=== PATIENT | female | born 1980 | race Two or more races ===

== ENCOUNTER 2024-06-02 12:00 | Emergency (ER) | payer MEDICAID, SELFPAY ==
[2024-06-02 12:29] VITALS: BP 98/75; PULSE 92; RESP 18; TEMP 36.8; O2SAT 99; BMI 83.9
--- NOTE | 2024-06-02 12:38 | EKG_ITS ---
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
--- NOTE | 2024-06-02 12:39 | PD.EDRME ---
Rapid Medical Screening Exam RME Arrival date/time: 06/02/24 12:00 44-year-old female with history of diabetes DVT and PE presents the emergency department today with complaints of generalized weakness Chief Complaint: General Adult/Misc Complain Time Seen by Provider: 06/02/24 12:16 Vital signs: Vital Signs Temperature 98.2 F 06/02/24 12:29 Pulse Rate 92 06/02/24 12:29 Respiratory Rate 18 06/02/24 12:29 Blood Pressure 98/75 06/02/24 12:29 Pulse Oximetry (%) 99 06/02/24 12:29 Oxygen Delivery Method Room Air 06/02/24 12:29
[2024-06-02 12:55] LABS: Base Excess, Venous 0 (-3-3); O2 Saturation, Venous 79 % (96-97); PCO2, Venous 28 mmHg (36-56); PO2, Venous 40 mmHg (15-58); pH, Venous 7.51 (7.33-7.66)
[2024-06-02 12:59] LABS: Basophils % (Auto) 1 % (0-2.5); Eosinophils # (Auto) 0.2 Thou/mm3 (0.0-0.5); Eosinophils % (Auto) 3 % (0-10); Hematocrit 36.1 % (36.0-46.0); Immature Granulocytes % (Auto) 0 % (0-0); Immature Granulocytes Auto 0.01 Thou/mm3 (0.00-0.00); Lymphocytes # (Auto) 1.4 Thou/mm3 (1.0-4.8); Lymphocytes % (Auto) 25 % (10-50); Mean Corpuscular HGB Conc 33.2 g/dl (31.0-37.0); Mean Corpuscular Hemoglobin 27.6 pg (25.0-35.0); Mean Corpuscular Volume 83 fL (80-100); Monocytes # (Auto) 0.4 Thou/mm3 (0.0-0.8); Monocytes % (Auto) 7 % (0-12); Neutrophils # (Auto) 3.7 Thou/mm3 (1.8-7.7); Neutrophils % (Auto) 65 % (37-80); Nucleated Red Blood Cell % 0 /100 WBC (0); Platelet Count 278 Thou/mm3 (140-440); RDW Standard Deviation 55.1 fL (36.4-46.3); Red Blood Count 4.34 Miln/mm3 (4.00-5.20); White Blood Count 5.8 Thou/mm3 (3.6-11.0)
[2024-06-02 13:21] LABS: Glucose Estimated Average 82 mg/dL (80-131); Hemoglobin A1C 4.5 % Hgb (4.8-6.0)
[2024-06-02 13:30] LABS: INR 1.2 (0.9-1.3); Partial Thromboplastin Time 27.6 Seconds (22.0-36.0)
[2024-06-02 13:35] LABS: B-Type Natriuretic Peptide 41 pg/mL (0-100)
[2024-06-02 13:54] LABS: Alanine Aminotransferase 23 U/L (10-49); Albumin/Globulin Ratio 0.8 (1.2-2.2); Alkaline Phosphatase 121 U/L (46-116); Aspartate Amino Transferase 120 U/L (0-34); BUN/Creatinine Ratio 10 Ratio (12-20); Bilirubin,Total 2.3 mg/dL (0.3-1.2); Blood Urea Nitrogen < 5 mg/dL (9-23); Calcium 8.8 mg/dL (8.3-10.6); Calcium (Corrected) 9.6 mg/dL (8.5-10.1); Chloride 96 mMol/L (98-107); Creatinine (Component) 0.5 mg/dL (0.6-1.3); Glucose 113 mg/dL (74-106); Lipase 20 U/L (12-53); Magnesium 1.8 mg/dL (1.6-2.6); Osmolality,Calculated 262 (275-295); Sodium 132 mMol/L (136-145); Troponin I < 0.002 ng/mL (0.0-0.045); eGFR > 60 See Note
[2024-06-02 14:02] LABS: Anion Gap 14 (7-16); Carbon Dioxide 22.5 mMol/L (20.0-31.0)
[2024-06-02 15:04] VITALS: BP 116/85; PULSE 102; RESP 17; TEMP 36.7; O2SAT 97
[2024-06-02 16:51] VITALS: BP 106/85; PULSE 104; RESP 16; TEMP 36.7; O2SAT 98
[2024-06-02 16:52] LABS: Collection Type, Urine Clean Catch
[2024-06-02 16:58] VITALS: BP 108/85; PULSE 98; RESP 19; O2SAT 100
--- NOTE | 2024-06-02 16:58 | PC.NURSE ---
pt very poor historian when asked why here. states had doctor appointment today and doctor said i looked bad and to come here. pt with c/o weakness/dizzines/headache for days, and c/o difficulty eating due to too much phlegm for 4 months
[2024-06-02 17:05] LABS: Amphetamine/Methamp Scrn,U Negative (Negative); Barbiturate Screen,Urine Negative (Negative); Benzodiazepines Screen,Urine Negative (Negative); Benzoylecgonine Screen, Ur Negative (Negative); Fentanyl Screen,Urine Negative (Negative); Opiate Screen,Urine Negative (Negative); THC Screen,Urine Negative (Negative)
[2024-06-02 17:06] LABS: Bacteria,Urine 1+; Bilirubin,Urine 2+ (Negative); Blood,Urine Negative (Negative); Color,Urine Drk-Orange (Lt Yel-Yel); Glucose, Urine Negative (Negative); Hyaline Casts,Urine 1 /hpf (0-1); Ketones,Urine Trace (Negative); Leukocyte Esterase,Urine Positive (Negative); Nitrite,Urine Negative (Negative); Protein,Urine 2+ (Neg - Trace); RBC,Urine 18 /hpf (0-3); Specific Gravity,Urine 1.033 (1.001-1.035); Squamous Epithelial Cell,Urine 9 /hpf (0-5); Urobilinogen,Urine OVER mg/dL (0.0-1.0); WBC,Urine 103 /hpf (0-5)
[2024-06-02 17:08] LABS: Clarity,Urine Cloudy (Clear/Hazy)
--- NOTE | 2024-06-02 17:17 | PC.NURSE ---
Clarified to Xiao Sofia regarding pt's medication order with KCl 40mEq G tube x1; pt has no G-tube in place. Per Xiao Sofia GREENSMAN, ok to give liquid KCL 40mEq PO at this time.
--- NOTE | 2024-06-02 17:25 | XR_ITS ---
Examination: Abdomen sonogram, Limited Date and time of exam: June 02, 2024 1817 hrs. Indications: Rising bilirubin on laboratory examination this week with right upper abdominal pain nausea and vomiting Technique: Real-time james scale transabdominal sonographic images of the upper abdomen obtained. Findings: Cholelithiasis, 14 mm gallstone Gallbladder wall 0.51 cm no edema Common bile duct 0.5 cm no stones noted Pancreas obscured by bowel gas Hepatomegaly 19.7 cm fatty infiltration no focal liver lesions Normal hepatopedal portal venous flow Patent IVC Impression: Cholelithiasis Abnormal thickening of the gallbladder wall 0.51 cm, consider MRCP follow-up to exclude cholecystitis Moderate hepatomegaly fatty liver
[2024-06-02] MEDS: POTASSIUM CHLORIDE 20 mEq TABCR 40 MEQ PO (17:36)
[2024-06-02 18:24] VITALS: BP 105/89; PULSE 100; RESP 18; TEMP 37; O2SAT 99
--- NOTE | 2024-06-02 19:18 | PD.EDADULT ---
ED General RME/HPI General Chief complaint: General Adult/Misc Complain Stated complaint: sent by PCP. fatigue, nausea, cannot void, r/o DKA Time Seen by Provider: 06/02/24 12:16 Arrival date/time: 06/02/24 12:00 CC: Generalized weakness HPI ongoing for the past several days. The patient also is complaining of left upper quadrant abdominal pain. Patient denies fever chills shortness of breath difficulty breathing. RME / HPI RME / HPI narrative: 06/02/24 12:00 44-year-old female with history of diabetes DVT and PE presents the emergency department today with complaints of generalized weakness Related Data Home Medications ?Medication ?Instructions ?Recorded ?Confirmed rivaroxaban 15 mg tablet (Xarelto) 15 mg PO BID 03/11/24 05/18/24 Previous Rx's ?Medication ?Instructions ?Recorded zinc oxide 10 % topical cream 1 applic topical BID PRN skin 05/01/24 irritation #78 grams Allergies Allergy/AdvReac Type Severity Reaction Status Date / Time No Known Allergies Allergy Verified 06/02/24 12:02 Review of Systems Review of Systems Narrative Review of Systems: GEN: No fever, no chills, no weight loss EYES: No discharge, no visual changes, no pain HEENT: No ear pain, no congestion, no sore throat PULM: No shortness of breath, no cough, no congestion CV: No chest pain, no dyspnea on exertion, no palpitations GI: No nausea, no vomiting, no diarrhea, no pain, no constipation : No frequency, no urgency, no dysuria MUSC/SKEL: No joint pain, no back pain SKIN: No rash PSYCH: No hallucinations, no depression HEME/LYMPH: No easy bleeding or bruising tendencies NEURO: No weakness, no headache Past Medical History Past Medical History CARDIAC: Positive Deep Vein Thrombosis and Hypertension; Negative Cardiac Disorders or Congestive Heart Failure RESPIRATORY: Positive Pneumonia and Pulmonary Embolism; Negative Chronic Obstructive Pulmonary Disease (COPD) or Asthma GASTROINTESTINAL: Positive Gastrointestinal Disorders, Gall Bladder Disease and Obesity GENITOURINARY: Negative Renal Disease REPRODUCTIVE: Positive Previous Pregnancies ENDOCRINE: Positive Diabetes Mellitus Type 2; Negative Diabetes Mellitus Type 1 HEMATOLOGIC: Positive Clotting Problems; Negative Sickle Cell Disease OTHER HISTORY: Negative Blood Transfusions, Anesthesia Reactions or Cancer Surgical History SURGICAL: Negative Abdominal Surgery Social History SMOKING STATUS: Never smoker SECOND HAND EXPOSURE: No ED Exam Narrative Physical exam: [General: Morbidly obese not in any acute distress Head normocephalic HEENT: Within acceptable limits Neck is supple nontender Chest equal chest rise nontender to palpation Respiratory: Clear to auscultation no wheezes crackles or rubs CV: Rate rhythm is regular no murmurs rubs or clicks Abdomen is grossly distended secondary to body habitus soft left upper quadrant tenderness with palpation. No masses positive bowel sounds all 4 quadrants Back: No CVA tenderness no spinous process tenderness from cervical spine thoracic and lumbar spine Skin: Intact no petechiae rash induration ulceration or crepitus Extremities: Moving all extremity against resistance cap refill less than 2 seconds neurosensory intact Neuro: Awake alert oriented x3 Glascow coma 15 no focal deficits] Course Quality Measures none Orders Category Date Time Status Bedside Blood Glucose NOW Care 06/02/24 12:32 Active EKG (ED ONLY) *Do not use* NOW Care 06/02/24 12:38 Completed EKG (ED Only) Stat Exams 06/02/24 12:38 Draft US gall bladder Stat Exams 06/02/24 17:25 Completed A1C [Glycohemoglobin w (eAG)] Stat Lab 06/02/24 12:44 Completed B-Type Natriuretic Peptide Stat Lab 06/02/24 12:44 Completed CBC Stat Lab 06/02/24 12:44 Completed Comprehensive Metabolic Panel Stat Lab 06/02/24 12:44 Completed Drug Screen,Urine Stat Lab 06/02/24 16:43 Completed Lipase Stat Lab 06/02/24 12:44 Completed Magnesium Stat Lab 06/02/24 12:44 Completed Partial Thromboplastin Time Stat Lab 06/02/24 12:44 Completed Prothrombin Time with INR Stat Lab 06/02/24 12:44 Completed Troponin I Stat Lab 06/02/24 12:44 Completed Urinalysis Stat Lab 06/02/24 16:43 Completed VBG [Venous Blood Gas] Stat Lab 06/02/24 12:44 Completed KCL 10% Liq UDC 15 ML Med 06/02/24 16:10 Discontinued 40 meq GT X1 ONE Potassium Chloride [K-Dur] Med 06/02/24 17:21 Discontinued 40 meq PO X1 ONE Vital Signs Vital signs: Vital Signs Temperature 98.2 F 06/02/24 12:29 Pulse Rate 92 06/02/24 12:29 Respiratory Rate 18 06/02/24 12:29 Blood Pressure 98/75 06/02/24 12:29 Pulse Oximetry (%) 99 06/02/24 12:29 Oxygen Delivery Method Room Air 06/02/24 12:29 [facility] Patient data External records reviewed:: [facility] previous records Clinical information provided by:: patient Social determinants that could affect healthcare access:: none Patient has the following chronic illnesses:: Morbid obesity DVTs How is presenting disease/condition affected by chronic disease/condition?: uneffected by Evaluation data The following diagnostics were reviewed and interpreted by me:: lab results and radiology exam(s) Lab and/or radiology exams considered but not ordered:: CBC shows no acute leukocytosis anemia thrombocytopenia CMP shows no electrolyte imbalances renal impairment T. bili has elevated over the presents the 1 month. Urine is negative ultrasound of the gallbladder shows a mildly thickened gallbladder wall MRCP is recommended. CT of the abdomen shows no acute finding quires emergent immediate intervention. Interpretation Summary: Given the patient's presentation I recommend the patient follow-up tomorrow morning with MRCP Medications Medications considered but not ordered:: None Medication administrations:: Medication Administration History Discontinued Medications Potassium Chloride (Potassium Chloride 10% 20 Meq/15 Ml Udc) 40 meq GT X1 ONE Stop: 06/02/24 16:11 Last Admin: 06/02/24 17:36 Dose: Not Given Documented By: CYNTHIA Non-Admin Reason: Cancelled by Provider Potassium Chloride (Potassium Chloride 20 Meq Tabcr) 40 meq PO X1 ONE Stop: 06/02/24 17:22 Last Admin: 06/02/24 17:36 Dose: 40 meq Documented By: CYNTHIA None Consultations Consultation(s) initiated? (list below): No Diagnosis Differential Diagnosis ED Complaint MDM: Hypokalemia abdominal pain morbid obesity Most likely diagnosis given after review of the tests above:: Hypokalemia abdominal pain Admission Indicated Admission indicated?: not indicated Explain why admission is indicated or not indicated:: Stable to return tomorrow for MRCP Admission Request Was there a request for admission?: No Disposition Plan Disposition Plan: Discharge Discharge Attestation Discharge Attestation: The patient and all family members were given an opportunity to ask questions and understood the discharge instructions. Discharge instructions specifically effects, indications for sooner follow up or return to the emergency department, and the expected course of current diagnosis. Patient condition: Stable Medical Decision Making Differential Diagnosis Differential Diagnosis: Hypokalemia abdominal pain morbid obesity Lab Data 06/02/24 12:44 06/02/24 12:44 Labs: Lab Results 06/02/24 06/02/24 Range/Units 12:44 16:43 WBC 5.8 (3.6-11.0) Thou/mm3 RBC 4.34 (4.00-5.20) Miln/mm3 Hgb 12.0 (12.0-16.0) g/dL Hct 36.1 (36.0-46.0) % MCV 83 (80-100) fL MCH 27.6 (25.0-35.0) pg MCHC 33.2 (31.0-37.0) g/dl RDW Std Deviation 55.1 H (36.4-46.3) fL Plt Count 278 D (140-440) Thou/mm3 Neut % (Auto) 65 (37-80) % Lymph % (Auto) 25 (10-50) % [place] % (Auto) 7 (0-12) % Eos % (Auto) 3 (0-10) % Baso % (Auto) 1 (0-2.5) % Neut # (Auto) 3.7 (1.8-7.7) Thou/mm3 Lymph # (Auto) 1.4 (1.0-4.8) Thou/mm3 [place] # (Auto) 0.4 (0.0-0.8) Thou/mm3 Eos # (Auto) 0.2 (0.0-0.5) Thou/mm3 Baso # (Auto) 0.0 (0.0-0.2) Thou/mm3 Immature Gran # (Auto) 0.01 H (0.00-0.00) Thou/mm3 Absolute Nucleated RBC 0.00 (0.00-0.00) Thou/mm3 Immature Gran % 0 (0-0) % Nucleated RBC % 0 (0) /100 WBC PT 13.0 H (9.0-12.2) Seconds INR 1.2 (0.9-1.3) APTT 27.6 (22.0-36.0) Seconds VBG pH 7.51 (7.33-7.66) VBG pCO2 28 L (36-56) mmHg VBG pO2 40 (15-58) mmHg VBG O2 Sat (Mga) 79 L (96-97) % VBG Base Excess 0 (-3-3) Sodium 132 L (136-145) mMol/L Potassium 3.0 L (3.4-5.1) mMol/L Chloride 96 L (98-107) mMol/L Carbon Dioxide 22.5 (20.0-31.0) mMol/L Anion Gap 14 (7-16) BUN < 5 L (9-23) mg/dL Creatinine 0.5 L (0.6-1.3) mg/dL Estim Creat Clear Calc 169.0 (>60) mL/min eGFR > 60 (60 - ) See Note BUN/Creatinine Ratio 10 L (12-20) Ratio Glucose 113 H (74-106) mg/dL Estimated Ave Glu mg/dL 82 (80-131) mg/dL Hemoglobin A1c 4.5 L (4.8-6.0) % Hgb Calculated Osmolality 262 L (275-295) Calcium 8.8 (8.3-10.6) mg/dL Corrected Calcium 9.6 (8.5-10.1) mg/dL Magnesium 1.8 (1.6-2.6) mg/dL Total Bilirubin 2.3 H (0.3-1.2) mg/dL AST 120 H (0-34) U/L ALT 23 (10-49) U/L Alkaline Phosphatase 121 H (46-116) U/L Troponin I < 0.002 (0.0-0.045) ng/mL B-Natriuretic Peptide 41 (0-100) pg/mL Total Protein 7.0 (5.7-8.2) gm/dL Albumin 3.0 L (3.5-5.0) gm/dL Globulin 4.0 H (2.3-3.5) gm/dL Albumin/Globulin Ratio 0.8 L (1.2-2.2) Lipase 20 (12-53) U/L Ur Collection Type Clean Catch Urine Color Drk-[place] A (Lt Yel-Yel) Urine Clarity Cloudy A (Clear/Hazy) Urine pH 6.0 (5.0-7.0) Ur Specific [place] 1.033 (1.001-1.035) Urine Protein 2+ A (Neg - Trace) Urine Glucose (UA) Negative (Negative) Urine Ketones Trace (Negative) Urine Blood Negative (Negative) Urine Nitrite Negative (Negative) Urine Bilirubin 2+ A (Negative) Urine Urobilinogen (Auto) OVER (0.0-1.0) mg/dL Ur Leukocyte Esterase Positive (Negative) Urine RBC 18 H (0-3) /hpf Urine WBC 103 H (0-5) /hpf Ur Squamous Epith Cells 9 H (0-5) /hpf Urine Bacteria 1+ A (None) Hyaline Casts 1 (0-1) /hpf Urine Opiates Screen Negative (Negative) Urine Fentanyl Screen Negative (Negative) Ur Barbiturates Screen Negative (Negative) U Amphetamin/Meth Scrn Negative (Negative) U Benzodiazepines Scrn Negative (Negative) U Cocaine Metab Screen Negative (Negative) U Marijuana (THC) Screen Negative (Negative) Discharge Plan Plan Patient Disposition: HOME (Self Care) Patient condition on transfer: Stable Prescriptions/Referrals Prescriptions/Med Rec: No Action Xarelto 15 mg Tablet 15 mg PO BID Rx Instructions: must administer with evening meal zinc oxide 10 % cream 1 applic topical BID PRN (Reason: skin irritation) Qty: 78 0RF Rx Instructions: Apply as needed for irritation on areas of skin fold Referrals: Flavio Akhtar MD [Primary Care Provider] - In 1 week Problem List Clinical Impression: Morbid obesity, Weakness, Abdominal pain Patient/Caregiver Discharge Instructions Other Activity Instructions:: Recommend that you follow-up with MRCP in the morning. Print Language: Estonian Stand Alone Forms: Kalli Award Info., Patient Portal Info Letter, Work/School Release PA/WIRE STITCHER MACHINE Supervising Physician PA/WIRE STITCHER MACHINE Supervising Physician: Adam Sofia ENP
[2024-06-02 19:49] VITALS: BP 106/84; PULSE 98; RESP 20; O2SAT 99
--- NOTE | 2024-06-02 19:54 | PC.NURSE ---
Spoke with URSULA Medina prior to DC regarding pt's UA results. Provider stated he would send prescription for abx.
== END 2024-06-02 20:08 | disposition home or self-care (01) ==
PROVIDERS: Nurse Practitioner Primary Care; Emergency Provider Emergency Medicine; PCP Family Medicine
DX: E66.01 Morbid (severe) obesity due to excess calories (principal); R53.1 Weakness; K82.8 Other specified diseases of gallbladder; I10 Essential (primary) hypertension; R94.31 Abnormal electrocardiogram [ECG] [EKG]; Z68.45 Body mass index [BMI] 70 or greater, adult
CPT/HCPCS: 36415; 76705; 80053; 80307; 81001; 82803; 83036; 83690; 83735; 83880; 84484; 85025; 85610; 85730; 93005; 99284; A9270

== ENCOUNTER 2024-06-07 12:39 | Emergency (ER) | payer MEDICAID, SELFPAY ==
[2024-06-07] VITALS (7 sets, daily range): BP systolic 81–121; BP diastolic 62–83; PULSE 78–86; RESP 16–18; TEMP 36.1–37.1; O2SAT 96–100; BMI 45.7
--- NOTE | 2024-06-07 12:54 | EKG_ITS ---
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
--- NOTE | 2024-06-07 12:54 | XR_ITS ---
Examination: AP chest single view Technique one AP portable semiupright chest single view Exam date and time: June 07, 2024 1312 hours Comparison April 28, 2024 INDICATIONS: Coughing 5 months sepsis today. FINDINGS: Left perihilar left basilar pneumonia Reduced inspiratory effort Mild prominence cardiac contour Intact osseous structures IMPRESSION: Left perihilar left basilar pneumonia
--- NOTE | 2024-06-07 12:55 | PD.EDRME ---
Rapid Medical Screening Exam RME Arrival date/time: 06/07/24 12:39 44-year-old female presents emergency department complains of cough, congestion, weakness Chief Complaint: Dizziness Time Seen by Provider: 06/07/24 12:50
[2024-06-07 13:17] LABS: Basophils % (Auto) 1 % (0-2.5); Eosinophils # (Auto) 0.2 Thou/mm3 (0.0-0.5); Eosinophils % (Auto) 4 % (0-10); Hematocrit 37.6 % (36.0-46.0); Hemoglobin 12.4 g/dL (12.0-16.0); Immature Granulocytes % (Auto) 0 % (0-0); Immature Granulocytes Auto 0.02 Thou/mm3 (0.00-0.00); Lymphocytes # (Auto) 1.4 Thou/mm3 (1.0-4.8); Lymphocytes % (Auto) 30 % (10-50); Mean Corpuscular Hemoglobin 27.9 pg (25.0-35.0); Mean Corpuscular Volume 85 fL (80-100); Monocytes # (Auto) 0.4 Thou/mm3 (0.0-0.8); Monocytes % (Auto) 7 % (0-12); Neutrophils # (Auto) 2.8 Thou/mm3 (1.8-7.7); Neutrophils % (Auto) 59 % (37-80); Nucleated Red Blood Cell % 0 /100 WBC (0); Platelet Count 281 Thou/mm3 (140-440); RDW Standard Deviation 59.9 fL (36.4-46.3); Red Blood Count 4.44 Miln/mm3 (4.00-5.20); White Blood Count 4.8 Thou/mm3 (3.6-11.0)
[2024-06-07 13:36] LABS: B-Type Natriuretic Peptide 53 pg/mL (0-100)
[2024-06-07 13:40] LABS: Alanine Aminotransferase 21 U/L (10-49); Albumin/Globulin Ratio 0.8 (1.2-2.2); Alkaline Phosphatase 118 U/L (46-116); Anion Gap 14 (7-16); Aspartate Amino Transferase 125 U/L (0-34); BUN/Creatinine Ratio 8 Ratio (12-20); Bilirubin,Total 1.5 mg/dL (0.3-1.2); Blood Urea Nitrogen < 5 mg/dL (9-23); Calcium 8.5 mg/dL (8.3-10.6); Calcium (Corrected) 9.3 mg/dL (8.5-10.1); Carbon Dioxide 24.1 mMol/L (20.0-31.0); Chloride 96 mMol/L (98-107); Creatinine (Component) 0.6 mg/dL (0.6-1.3); Estimated Creatinine Clearance 145.4 mL/min (>60); Globulin 3.9 gm/dL (2.3-3.5); Glucose 84 mg/dL (74-106); INR 1.3 (0.9-1.3); Magnesium 1.9 mg/dL (1.6-2.6); Osmolality,Calculated 264 (275-295); Partial Thromboplastin Time 28.7 Seconds (22.0-36.0); Potassium 3.2 mMol/L (3.4-5.1); Prothrombin Time 13.6 Seconds (9.0-12.2); Sodium 134 mMol/L (136-145); Total Protein 6.9 gm/dL (5.7-8.2); Troponin I < 0.002 ng/mL (0.0-0.045); eGFR > 60 See Note
--- NOTE | 2024-06-07 14:28 | PD.EDWEAK ---
ED Weakness RME/HPI General Chief complaint: Dizziness Stated complaint: DIZZY, WEAK, NOT EATING Time Seen by Provider: 06/07/24 12:50 Arrival date/time: 06/07/24 12:39 Limitations: no limitations RME / HPI RME / HPI Narrative: 06/07/24 12:39 44-year-old female presents emergency department complains of cough, congestion, weakness DR. LAKISHA CARABALLO ED EVALUATION: 44 year old female with history of diabetes previously on insulin presents to the ED for evaluation of generalized weakness, decreased appetite, dizziness, and bilateral lower extremity pain. Also reports she is spitting up phlegm although reports is not new. No other associated symptoms or complaints reported. Patient mentioned she has been evaluated here multiple times regarding similar symptoms and was last here 5 days ago. Denies fevers, chills, chest pain, abdominal pain, vomiting, diarrhea, or urinary symptoms. Related Data Home Medications ?Medication ?Instructions ?Recorded ?Confirmed rivaroxaban 15 mg tablet (Xarelto) 15 mg PO BID 03/11/24 05/18/24 Previous Rx's ?Medication ?Instructions ?Recorded zinc oxide 10 % topical cream 1 applic topical BID PRN skin 05/01/24 irritation #78 grams cephalexin 500 mg capsule 500 mg PO TID #21 caps 06/02/24 Allergies Allergy/AdvReac Type Severity Reaction Status Date / Time No Known Allergies Allergy Verified 06/07/24 12:41 Review of Systems Review of Systems Narrative Review of Systems: GEN: No fever, no chills, no weight loss EYES: No discharge, no visual changes, no pain HEENT: No ear pain, no congestion, no sore throat PULM: No shortness of breath, +coughing phlegm CV: +dizziness. No chest pain, no palpitations GI: No nausea, no vomiting, no diarrhea, no pain, no constipation : No frequency, no urgency, no dysuria MUSC/SKEL: No joint pain, no back pain SKIN: No rash NEURO: +generalized weakness, no headache Past Medical History Past Medical History CARDIAC: Positive Deep Vein Thrombosis and Hypertension RESPIRATORY: Positive Pneumonia and Pulmonary Embolism GASTROINTESTINAL: Positive Gastrointestinal Disorders, Gall Bladder Disease and Obesity REPRODUCTIVE: Positive Previous Pregnancies ENDOCRINE: Positive Diabetes Mellitus Type 2 HEMATOLOGIC: Positive Clotting Problems Surgical History SURGICAL: Negative Abdominal Surgery Social History SMOKING STATUS: Never smoker SECOND HAND EXPOSURE: No ED Exam General Limitations: Present no limitations General appearance: Present alert, in no apparent distress and obese Head Head exam: Present atraumatic, normocephalic and normal inspection Eye Eye exam: Present normal appearance, PERRL and EOMI ENT ENT exam: Present normal exam, normal oropharynx and mucous membranes moist Neck Neck exam: Present normal inspection, full ROM and trachea midline Chest Chest inspection: Present normal inspection and symmetric chest wall rise Respiratory Respiratory exam: Present normal lung sounds bilaterally Cardiovascular Cardiovascular exam: Present regular rate, normal rhythm and normal heart sounds Abdominal Exam Abdominal exam: Present soft and normal bowel sounds; Absent distention or tenderness Extremities Exam Extremities exam: Present normal inspection and full ROM Back Exam Back exam: Present normal inspection and full ROM Neurological Exam Neurological exam: Present alert, oriented X3 and CN II-XII intact Psychiatric Psychiatric exam: Present normal affect and normal mood Skin Skin exam: Present warm, dry, intact and normal color Course Quality Measures none Orders Category Date Time Status Bedside COVID-19 Antigen Test NOW Care 06/07/24 12:54 Completed Bedside Influenza A&B Antigen Test NOW Care 06/07/24 12:54 Completed EKG (ED ONLY) *Do not use* NOW Care 06/07/24 12:54 Completed EKG (ED Only) Stat Exams 06/07/24 12:54 Draft XR chest 1V Stat Exams 06/07/24 12:54 Completed B-Type Natriuretic Peptide Stat Lab 06/07/24 13:11 Completed CBC Stat Lab 06/07/24 13:11 Completed Comprehensive Metabolic Panel Stat Lab 06/07/24 13:11 Completed Magnesium Stat Lab 06/07/24 13:11 Completed Partial Thromboplastin Time Stat Lab 06/07/24 13:11 Completed Prothrombin Time with INR Stat Lab 06/07/24 13:11 Completed Troponin I Stat Lab 06/07/24 13:11 Completed Urinalysis Stat Lab 06/07/24 15:50 Completed Potassium Chloride [K-Dur] Med 06/07/24 14:37 Discontinued 20 meq PO X1 ONE Sodium Chloride 0.9% 500 ml [Ns] 500 ml Med 06/07/24 14:38 Discontinued IV 999 mls/hr Vital Signs Vital signs: Vital Signs Temperature 98.8 F 06/07/24 13:04 Pulse Rate 82 06/07/24 13:04 Respiratory Rate 18 06/07/24 13:04 Blood Pressure 81/64 L 06/07/24 13:04 Pulse Oximetry (%) 99 06/07/24 13:04 Oxygen Delivery Method Room Air 06/07/24 13:04 Pulse ox is 99% on room air which is adequate. Weakness MDM Narrative MDM Narrative:: Vandana Black am scribing for and in the presence of Dr. Ramey. Patient data External records reviewed:: [facility] previous records (I reviewed ED visit on 06/02/2024) Clinical information provided by:: patient Social determinants that could affect healthcare access:: none Patient has the following chronic illnesses:: diabetes previously on insulin How is presenting disease/condition affected by chronic disease/condition?: uneffected by Evaluation data The following diagnostics were reviewed and interpreted by me:: lab results, radiology exam(s) and EKG tracing(s) (NSR, HR 83, normal axis, no ectopy, Q-waves in lead III, ST segment depression V1-V3, no acute ischemia ) Lab and/or radiology exams considered but not ordered:: None Interpretation Summary: Ordering Physician: Jenni CAMERON)Roman NP Date of Service: 06/07/24 Procedure(s): XR chest 1V Accession Number(s): [id number] cc: Jenni CAMERON),Roman VERGARA; Joe Kowalski MD~ Examination: AP chest single view Technique one AP portable semiupright chest single view Exam date and time: June 07, 2024 1312 hours Comparison April 28, 2024 INDICATIONS: Coughing 5 months sepsis today. FINDINGS: Left perihilar left basilar pneumonia Reduced inspiratory effort Mild prominence cardiac contour Intact osseous structures IMPRESSION: Left perihilar left basilar pneumonia Dictated By: Joe Kowalski MD Signed By: <Electronically signed by Joe Kowalski MD in OV> 06/07/24 1330 Medications / Prescriptions Medications or Prescriptions considered but not ordered:: None Medication administrations:: Medication Administration History Discontinued Medications Sodium Chloride (Ns) 500 mls @ 999 mls/hr IV .Q31M ONE Stop: 06/07/24 15:08 Last Infusion: 06/07/24 17:45 Dose: Infused Documented By: Admin: 06/07/24 15:57 Dose: 999 mls/hr Documented By: LUIS Potassium Chloride (Potassium Chloride 20 Meq Tabcr) 20 meq PO X1 ONE Stop: 06/07/24 14:38 Last Admin: 06/07/24 15:57 Dose: 20 meq Documented By: EH See above Consultations Consultation(s) initiated? (list below): No Diagnosis Weakness Differential Diagnosis: anemia, hypothyroidism, rhabdomyolysis, sepsis and dehydration Most likely diagnosis given after review of the tests above:: Cough Chronic leg pain Admission Indicated Admission indicated?: not indicated Admission Request Was there a request for admission?: No Disposition Plan Disposition Plan: Discharge Discharge Attestation Discharge Attestation: The patient and all family members were given an opportunity to ask questions and understood the discharge instructions. Discharge instructions specifically effects, indications for sooner follow up or return to the emergency department, and the expected course of current diagnosis. Patient condition: Stable Discharge Plan Plan Patient Disposition: HOME (Self Care) Disposition Comment: Stable for discharge Patient condition on transfer: Stable Prescriptions/Referrals Prescriptions/Med Rec: No Action Xarelto 15 mg Tablet 15 mg PO BID Rx Instructions: must administer with evening meal zinc oxide 10 % cream 1 applic topical BID PRN (Reason: skin irritation) Qty: 78 0RF Rx Instructions: Apply as needed for irritation on areas of skin fold cephalexin 500 mg capsule 500 mg PO TID Qty: 21 0RF Referrals: Camacho Dimas PA-C [Primary Care Provider] - In 1 week Problem List Clinical Impression: Cough, Chronic leg pain Patient/Caregiver Discharge Instructions Discharge Activity: activity as tolerated Education Materials: Complementary Care for Pain, Chronic Pain Therapies Mind Body, ED Chronic Pain, ED Cough Chronic Uncertain Cause Adult Additional Instructions: Please return to the emergency department for any worsening or any further medical problems It is not clear why you have this phlegm production in your trachea. But you should follow-up with your primary care doctor in the next several days for further testing and treatment. Print Language: Canadian Stand Alone Forms: Kalli Award Info., Patient Portal Info Letter
[2024-06-07] MEDS: SODIUM CHLORIDE 0.9% 500 ML 500 ML 999 ML IV (15:57)
[2024-06-07] MEDS: POTASSIUM CHLORIDE 20 mEq TABCR PO (15:57)
[2024-06-07 16:00] LABS: Collection Type, Urine Clean Catch
[2024-06-07 16:15] LABS: Bilirubin,Urine 1+ (Negative); Blood,Urine 3+ (Negative); Color,Urine Drk-Yellow (Lt Yel-Yel); Glucose, Urine Negative (Negative); Ketones,Urine 3+ (Negative); Leukocyte Esterase,Urine Negative (Negative); Nitrite,Urine Negative (Negative); Protein,Urine 1+ (Neg - Trace); RBC,Urine 236 /hpf (0-3); Squamous Epithelial Cell,Urine 3 /hpf (0-5); WBC,Urine 1 /hpf (0-5)
[2024-06-07 16:24] LABS: Clarity,Urine Hazy (Clear/Hazy)
== END 2024-06-07 18:11 | disposition home or self-care (01) ==
PROVIDERS: Nurse Practitioner Primary Care; Emergency Provider Emergency Medicine; PCP Physician Assistant
DX: J18.9 Pneumonia, unspecified organism (principal); M79.606 Pain in leg, unspecified; G89.29 Other chronic pain; R94.31 Abnormal electrocardiogram [ECG] [EKG]
CPT/HCPCS: 36415; 71045; 80053; 81001; 83735; 83880; 84484; 85025; 85610; 85730; 87400; 87811; 93005; 96360; 96361; 99284; J7040; A9270